=== PATIENT | male | born 1970 | race Caucasian/White ===

== ENCOUNTER 2022-06-13 23:52 | Emergency (ER) | payer OTHER ==
[2022-06-13] MEDS ORDERED: Sodium Chloride 0.9% 10 ML Syringe FLUSH PRN (23:58)
[2022-06-14] MEDS ORDERED: Metoprolol Tartrate 5 MG/5 ML SDV IVPUSH ONE (00:03)
[2022-06-14] MEDS: Diltiazem 100 MG in Sodium Chloride 0.9% 100 ML IV SCH ×2 (00:26→06:23)
[2022-06-14] MEDS: Lactated Ringers 1,000 ML IV SCH ×2 (01:26→06:45)
[2022-06-14] MEDS ORDERED: Potassium Chloride Riders 10 MEQ in Premix Bag 1 BAG IV ONE (06:39)
[2022-06-14] MEDS ORDERED: Potassium Chloride Riders 50 ML ONE (06:50)
== END 2022-06-14 09:50 | disposition home or self-care (01) ==
LOC: LB.ED 23:52
DX: I48.91 Unspecified atrial fibrillation (principal); Z79.01 Long term (current) use of anticoagulants; Z79.899 Other long term (current) drug therapy
CPT/HCPCS: 36415; 80048; 85027; 93005; 96361; 96365; 96366; 96368; 96375; 99285-25; J3475; J3480; J3490; J7120